=== PATIENT | female | born 1975 | race Hispanic/Latino ===

== ENCOUNTER 2024-05-15 19:05 | Emergency (ER) | payer SELFPAY ==
[2024-05-15 19:22] VITALS: BP 99/65
[2024-05-15 20:05] LABS: % Basophils 1.4 % (0-2); % Eosinophils 2.7 % (0-6); % Immature Granulocytes 0.3 % (0-0.5); % Monocytes 7.9 % (1.7-9.3); % Neutrophils 44.7 % (42.2-75.2); Absolute Basophils 0.1 10^3/uL (0-0.2); Absolute Eosinophils 0.2 10^3/uL (0-0.7); Absolute Lymphocytes 3.4 10^3/uL (1.2-3.4); Absolute Monocytes 0.6 10^3/uL (0.1-0.6); Absolute Neutrophils 3.5 10^3/uL (1.4-6.5); Hematocrit 36.5 % (37.0-47.0); Mean Corp Hgb Conc. 35.6 g/dL (33.0-37.0); Mean Corpuscular Hgb 27.7 pg (27.0-31.0); Mean Corpuscular Volume 77.7 fL (81.0-99.0); Mean Platelet Volume 10.4 fL (7.4-10.4); Nucleated Red Blood Cells % 0 %; Platelet Count 233 10^3/uL (130-400); Red Cell Dist. Width 13.5 % (11.5-14.5); White Blood Cell Count 7.9 10^3/uL (4.8-10.8)
[2024-05-15 20:06] LABS: Urine Albumin Trace (Neg - Trace); Urine Bilirubin Negative (Negative); Urine Character Slightly Cloudy (Clear); Urine Color Yellow; Urine Glucose Negative (Negative); Urine Ketone Negative (Negative); Urine Leukocyte 1+ (Negative); Urine Nitrite Negative (Negative); Urine Occult Blood 4+ (Negative); Urine Urobilinogen Negative (Neg - 1+)
[2024-05-15 20:20] LABS: ALT (SGPT) 20 U/L (0-35); AST (SGOT) 24 U/L (14-36); Albumin 4.4 g/dl (3.5-5.0); Alkaline Phosphatase 62 U/L (38-126); Blood Urea Nitrogen 35 mg/dl (7-17); Calcium 9.6 mg/dl (8.4-10.2); Carbon Dioxide 29 mmol/L (22-30); Chloride 105 mmol/L (98-107); Glucose 107 mg/dl (70-99); Potassium 4.2 mmol/L (3.5-5.1); Sodium 142 mmol/L (135-145); Total Bilirubin 0.2 mg/dl (0.2-1.3); Total Protein 7.2 g/dl (6.3-8.2); Urine Bacteria Few (Negative); Urine Red Blood Cell 90-100 /HPF (0-2); eGFR > 60.00
--- NOTE | 2024-05-15 20:46 | ED.GENMED ---
History of Present Illness
General
Chief Complaint: Abdominal Pain
Time Seen by Provider: 05/15/24 20:46
Course
Orders/Labs/Results
Orders:
Orders
05/15/24 19:48
Complete Blood Count/With Diff Urgent
Comprehensive Metabolic Panel Urgent
Urinalysis Reflex To Culture Urgent
Date Specimen was Collected: 05/15/24
Time Specimen was Collected: 19:32
Urine Microscopic Reflex Cult Urgent
Urine Culture Urgent
DANIELLE Source: U
Specimen Description:
Date Specimen was Collected: 05/15/24
Time Specimen was Collected: 19:32
Abnormal Lab Results
05/15/24
19:48
Hct 36.5 L %
(37.0-47.0)
MCV 77.7 L fL
(81.0-99.0)
BUN 35 H mg/dl
(7-17)
Glucose 107 H mg/dl
(70-99)
Ur Occult Blood Reflex 4+ A
(Negative)
Leukocyte Esterase Rfl 1+ A
(Negative)
Urine RBC 90-100 A /HPF
(0-2)
Urine Bacteria (Reflex) Few A
(Negative)
05/15/24 19:48
05/15/24 19:48
Vital Signs
Initial and Last Documented VS:
Initial Vital Signs
Temp Pulse Resp BP Pulse Ox
36.7 C 70 20 99/65 99
05/15/24 19:22 05/15/24 19:22 05/15/24 19:22 05/15/24 19:22 05/15/24 19:22
Last Documented Vital Signs
Temp Pulse Resp BP Pulse Ox
36.7 C 70 20 99/65 99
05/15/24 19:22 05/15/24 19:22 05/15/24 19:22 05/15/24 19:22 05/15/24 19:22
ED Attending Note
-
Portions of this chart may have been created with voice recognition software.� Occasional wrong word or��sound alike� substitutions may have occurred due to the inherent limitations of voice recognition software.
Discharge Plan
Interventions
Interventions:
*Risk Screen - Suicide Last Done: 05/15/24 19:22
*Neglect/Abuse Screening Last Done: 05/15/24 19:30
Discharge Date and Time
Print Language: [id number]
[2024-05-15 20:59] LABS: HCG, Urine Qualitative Screen Negative
== END 2024-05-15 23:49 ==
LOC: EMR 19:05
PROVIDERS: Emergency Medicine
DX: R10.9 Unspecified abdominal pain (principal)
CPT/HCPCS: 80053; 81003; 81015; 81025; 85025; 87086